=== PATIENT | male | born 1980 | race Caucasian/White ===

== ENCOUNTER → 2017-02-24 | Outpatient (CLI) | payer OTHER ==
[~2017-02-24] MED LIST: AMLODIPINE BESYL5 MG PO; ZESTORETIC 20-1 EAC2 PO
--- NOTE | ~2017-02-24 | EKG ---
PATIENT: MAKSIM TOLENTINO UNIT #: [id number] Ventricular Rate: 98 BPM Atrial Rate: 98 BPM P-R Interval: 136 ms QRS Duration: 94 ms Q-T Interval: 346 ms QTC Calculation(Bezet): 441 ms P [place]: 31 degrees Calculated R [place]: 26 degrees Calculated T [place]: 36 degrees Diagnosis Line: Normal sinus rhythm Diagnosis Line: Normal ECG Diagnosis Line: No previous ECGs available Diagnosis Line: Confirmed by JOEL STACK MD ([id number]) on 02/25/2017 Diagnosis Line: 10:19:45 PM INTERPRETING MD: SEDA VALERIO
[2017-02-24 13:18] LABS: CREATININE SERUM 0.9 mg/dL (0.6-1.4); GLOM FILT RATE Estimated 110.3 mL/min (>60); POTASSIUM 4.1 mmol/L (3.5-5.1)
== END | disposition home or self-care (01) ==
LOC: CAMB 11:00
PROVIDERS: Surgery
DX: Z01.818 Encounter for other preprocedural examination (principal); K43.9 Ventral hernia without obstruction or gangrene
CPT/HCPCS: 36415; 80048; 93005

== ENCOUNTER → 2017-03-02 | Day surgery (SDC) | payer OTHER ==
--- NOTE | ~2017-03-02 | OR ---
Unit #: [id number] #: [id number] Patient: MAKSIM TOLENTINO [id number] [address] [place], [place] [address] [id number] MR#: [id number] NAME: MAKSIM TOLENTINO ROOM: Date of Procedure: 03/02/2017 Admission Date: 03/02/2017 Surgeon: Mariano Javier Jr., M.D. : 1980 Attending Physician: Mariano Javier Jr., M.D. Primary Care Physician: Mu Murrieta Jr., A.P.R.N. OPERATIVE REPORT INDICATIONS FOR PROCEDURE The patient is a 36-year-old white male, recently presented to the office complaining of an incarcerated ventral hernia, which caused some discomfort at times, but no obstructive symptoms. He is brought in this time at his request for reduction and repair of this laparoscopically, understands the procedure including the risks, including that of intra-abdominal organ injury, bleeding, infection, recurrence of his hernia, and chronic pain, and consents. PREOPERATIVE DIAGNOSIS Chronic incarcerated ventral hernia in the area of the umbilicus. POSTOPERATIVE DIAGNOSIS Chronic incarcerated ventral hernia in the area of the umbilicus, noting omental incarceration with moderate amount incarcerated within the hernia. ANESTHESIA General with endotracheal intubation and 0.5% Marcaine with epinephrine locally. PROCEDURES PERFORMED Reduction and laparoscopic ventral hernia repair with a 6 x 4 inch Ventralight mesh. DESCRIPTION OF PROCEDURE The patient was positioned in the supine position. After being anesthetized and intubated, he was prepped and draped in routine fashion for laparoscopic ventral hernia repair. A small 0.5 cm incision was made in the right lateral abdominal wall area. A 5-mm Optiview was introduced in the abdomen followed by the camera. There was no evidence of any injury related to introduction of the Optiview. The abdomen was inflated with CO2 gas. The patient was noted to have incarcerated omentum within the hernia and a 5-mm port was placed in the right lower quadrant abdominal wall area and a 5 mm in the left upper and 11 mm in the left lower quadrant abdominal wall area under direct visualization. The omentum was reduced and the adhesions of the omentum within the hernia sac were then taken down with the hook cautery using a current of 20. After this was released, the omentum was checked. There was no evidence of any bleeding from it. The falciform was taken down as well as some fatty tissue on the lower abdominal wall area with the hook cautery and at this point, a 4 x 6 inch Ventralight mesh was tacked in 4 corners placed intraabdominally after being soaked in antibiotic solution, brought up Unit #: [id number] #: [id number] Patient: MAKSIM TOLENTINO against the anterior abdominal wall with excellent coverage of the defect and tacked in place with the SecureStrap tacks. The sutures holding it up which were initially pulled up through the abdominal wall with the Endo Close technique were then lysed. The abdomen was again checked. There was no evidence of any bleeding. No evidence of any problems with positioning of the graft or tacking to the abdominal wall. The CO2 was then expressed from the abdomen and the fascia in the larger port site area was approximated with the neoClose technique. The wounds were irrigated and injected with 0.5% Marcaine with epinephrine locally and after hemostasis achieved with Bovie cautery, the skin edges on all the wounds were approximated with stainless-steel skin clips and skin stapling device. Sterile dressings were applied externally. Estimated blood loss less than 50 mL. The patient received less than 1500 mL crystalloid solution during the procedure. Sponges and instrument counts were correct x3. No drains used. No complications. The patient was taken to the recovery room with stable vital signs in satisfactory condition. Dictated by... Mariano Javier Jr., M.D. JMB/gavin TD: 03/02/2017 15:19 JOB #: [id number] OPERATIVE REPORT Page 1 of 1 X Mariano Javier MD X PROCEDURE OPERATIVE NOTE
== END | disposition home or self-care (01) ==
LOC: CSUR 07:30
DX: K43.6 Other and unspecified ventral hernia with obstruction, without gangrene (principal); I10 Essential (primary) hypertension; K21.9 Gastro-esophageal reflux disease without esophagitis; E66.9 Obesity, unspecified; F17.210 Nicotine dependence, cigarettes, uncomplicated; Z68.33 Body mass index [BMI] 33.0-33.9, adult; Z87.442 Personal history of urinary calculi; Z79.899 Other long term (current) drug therapy; Z98.890 Other specified postprocedural states
CPT/HCPCS: C1781; J0330; J0690; J2175; J2250; J2270; J2405; J3010